=== PATIENT | female | born 1970 | race Caucasian/White ===

== ENCOUNTER 2024-02-03 08:57 | Outpatient (CLI) | payer OTHER, SELFPAY | END 2024-02-03 08:58 | disposition home or self-care (01) | LOC: NFLDREF 02-06 06:55 | PROVIDERS: PCP Emergency Medicine; Visit Provider Emergency Medicine | DX: I10 Essential (primary) hypertension (principal); E78.5 Hyperlipidemia, unspecified | CPT/HCPCS: 80053; 80061 ==

== ENCOUNTER 2024-03-16 15:06 | Outpatient (CLI) | payer OTHER, SELFPAY ==
--- NOTE | 2024-03-16 15:20 | MM_ITS ---
Patient: TERRY NIETO Facility:?[facility] R[facility] Patient ID:?[id number] Site Patient ID:?[id number]. Site :?[id number] Study:?XRay-Breast Bilateral 3d w/cad-03/16/2024 3:58:42 PM Ordering Physician:shana Final Report: BILATERAL SCREENING MAMMOGRAM WITH COMPUTER-AIDED DETECTION AND TOMOSYNTHESIS TECHNIQUE: CC and MLO views were obtained. These mammographic images have been obtained using full-field digital technique. These mammographic images were interpreted with the benefit of computer-aided detection. Breast Tomosynthesis was used in this interpretation. COMPARISON FILM: 12/26/13, 10/02/12. FINDINGS: There are scattered areas of fibroglandular density. IMPRESSION: There is no radiographic evidence for malignancy. ASSESSMENT: BI-RADS Category 1: Negative RECOMMENDATION: Routine screening mammogram in 1 year. A lay language report of this examination will be provided to the patient. Jono Castillo M.D. Diagnostic Radiologist [email or web address] DSM/sp R& Transcribed: 8:14 p.m. SP/Dictated by: Jono Castillo MD @ 03/22/2024 10:06:00 AM Signed by:?Jono Castillo MD @03/22/2024 8:30:14 PM (Electronic Signature)
== END 2024-03-16 15:07 | disposition home or self-care (01) ==
LOC: MAMMO 15:08
PROVIDERS: Visit Provider Emergency Medicine
DX: Z12.31 Encounter for screening mammogram for malignant neoplasm of breast (principal)
CPT/HCPCS: 77063; 77067